=== PATIENT | male | born 2000 | race Caucasian/White ===

== ENCOUNTER 2022-01-30 09:30 | Day surgery (SDC) | payer OTHER ==
[~2022-01-30] VITALS: Ht 175.3 cm; Wt 85.5 kg
[2022-01-30] MEDS ORDERED: PRINIVIL10 MG PO (09:54)
[2022-01-30] MEDS ORDERED: DESYREL 50MG50 MG PO (09:54)
[2022-01-30] MEDS ORDERED: PRILOSEC 20MG20 MG PO (09:55)
[2022-01-30 10:02] VITALS: BP 139/74; PULSE 51; TEMP 98.7
[2022-01-30 11:50] VITALS: BP 107/65; PULSE 62; TEMP 97.6
--- NOTE | 2022-01-30 11:50 | NUR ---
PATIENT RETURNS TO ROOM 2 VIA CART. ASSIST X 2 TO CHAIR. HE REQUESTS A MUFFIN, CHOCOLATE PUDDING, AND COFFEE. VITAL SIGNS WNL. FRIEND AT BEDSIDE. WILL CONTINUE TO MONITOR.
[2022-01-30 12:05] VITALS: BP 123/60; PULSE 56
--- NOTE | 2022-01-30 12:05 | NUR ---
PATIENT IS AWAKE AND ORIENTED. TOLERATED FOOD AND DRINK WELL. VITAL SIGNS WNL. WILL CONTINUE TO MONITOR.
[2022-01-30 12:20] VITALS: BP 120/60; PULSE 59
--- NOTE | 2022-01-30 12:20 | NUR ---
PATIENT IS READY FOR DISCHARGE. INSTRUCTIONS REVIEWED. IV REMOVED. DOCTOR AT BEDSIDE. LAST SET OF VITALS WNL. WILL DISCHARGE WHEN HE IS READY.
[2022-01-30 14:19] VITALS: BP 112/63; PULSE 48
== END 2022-01-30 12:25 | disposition home or self-care (01) ==
LOC: SDCO 09:30
DX: K21.00 Gastro-esophageal reflux disease with esophagitis, without bleeding (principal); Z87.891 Personal history of nicotine dependence
CPT/HCPCS: J2704; J7030